=== PATIENT | male | born 1980 | race Hispanic/Latino ===

== ENCOUNTER 2023-07-13 19:24 | Emergency (ER) | payer OTHER, SELFPAY ==
[2023-07-13 19:24] VITALS: BP 149/98; PULSE 97; RESP 19; TEMP 36.2; O2SAT 98; BMI 31.3
[2023-07-13 22:02] VITALS: BP 145/105; PULSE 68; RESP 18; O2SAT 99
--- NOTE | 2023-07-13 22:58 | EKG12_ITS ---
Test Reason : DYSRHYTHMIA Blood Pressure : / mmHG Vent. Rate : 070 BPM Atrial Rate : 070 BPM P-R Int : 162 ms QRS Dur : 078 ms QT Int : 352 ms P-R-T Axes : 039 054 033 degrees QTc Int : 380 ms Normal sinus rhythm ST elevation, consider early repolarization Borderline ECG Confirmed by Oscar Marquez ([id number]), film editor MATT RAMIREZ ([id number]) on 07/18/2023 9:59:28 AM Referred By: Confirmed By:Oscar Marquez
--- NOTE | 2023-07-13 23:00 | EDS_ITS ---
HPI History of Present Illness Chief Complaint: Shortness of Breath Informant: patient Narrative Narrative: Patient presents secondary to left-sided chest pain, shortness of breath, and mild cough. 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 He had a lung biopsy in the distant past and completed his full treatment per his report. He states every once in a while he will get flares of this left-sided lung pain. He does report some subjective fever and chills but he states he gets very rarely. [facility] Medical History Tuberculosis Home Medications ?Medication ?Instructions ?Recorded ?Last Taken ?Type naproxen 500 mg tablet (Naprosyn) 500 mg PO BID PRN pain #20 tabs 07/14/23 Unknown Rx tramadol 50 mg tablet 50 mg PO Q8H PRN pain #14 tabs 07/14/23 Unknown Rx Allergy/AdvReac Type Severity Reaction Status Date / Time No Known Allergies Allergy Verified 07/13/23 19:27 Social History Smoking Status: Never smoker ROS ROS ED Constitutional Constitutional ED: Denies chills or fever(s) Eyes Eyes: Denies discharge from eye(s) ENT ENT ED: Denies discharge from eye(s), rhinorrhea or sore throat Cardiovascular Cardiovascular: Reports chest pain; Denies palpitations Respiratory/Chest Respiratory/Chest: Reports cough and dyspnea Gastrointestinal Gastrointestinal: Denies abdominal pain, nausea or vomiting Genitourinary Genitourinary ED: Denies dysuria Musculoskeletal Musculoskeletal: Denies back pain or extremity pain Integumentary Denies Abrasions or rash Neurologic Neurologic: Denies headache(s) or weakness Psychiatric Psychiatric: Denies anxiety or depression Allergic/Immunologic Allergic/Immunologic ED: Denies lip swelling or urticaria EXAM Physical Exam Const Vital Signs: 07/13/23 19:24 07/13/23 21:59 07/13/23 22:02 Temperature 97.1 F L Temperature Source Temporal Pulse Rate 97 68 Respiratory Rate 19 H 18 Respiratory Effort Normal Non-Labored Respiratory Depth Normal Respiratory Pattern Normal Blood Pressure 149/98 H 145/105 H Blood Pressure Mean 115 118 Pulse Ox 98 99 Oxygen Delivery Method Room Air Room Air Room Air 07/14/23 00:00 Temperature Temperature Source Pulse Rate 75 Respiratory Rate 17 Respiratory Effort Respiratory Depth Respiratory Pattern Blood Pressure 145/98 H Blood Pressure Mean 112 Pulse Ox 98 Oxygen Delivery Method Positive well nourished and well developed General Appearance ED: well developed HEENT Reports moist mucous membranes Eyes EOMs intact bilaterally Chest Wall inspection of chest normal and palpation of chest normal Resp normal respiratory effort and clear to auscultation bilaterally Cardio regular rate and regular rhythm GI non-tender Palpation: soft Extremity normal to inspection Neuro oriented x3 and no sensory deficits noted Motor Exam: strength 5/5 throughout Psych mental status grossly normal Skin no rashes or lesions noted MDM MDM MDM Narrative Medical decision making narrative: Patient placed on night monitor. IV line initiated. Labwork obtained to evaluate for leukocytosis, anemia, and electrolyte derangement. EKG obtained to evaluate for cardiac arrhythmia/ischemia. Chest x-ray obtained to evaluate for acute lung pathology, cardiac size, or mediastinal abnormality. History & Record Review Discussion w/independent historian: Patient and Significant other Lab Data Attestation: I reviewed the patient's lab results. Labs: Laboratory Results - last 24 hr 07/13/23 23:10 WBC 7.7 RBC 4.72 Hgb 14.6 Hct 41.3 MCV 87.5 MCH 30.9 MCHC 35.4 RDW Std Deviation 40.7 RDW Coeff of [place] 12.6 Plt Count 235 MPV 10.3 Immature Gran % (Auto) 0.300 Neut % (Auto) 43.3 L Lymph % (Auto) 47.8 H [place] % (Auto) 6.7 Eos % (Auto) 1.3 Baso % (Auto) 0.6 Absolute Neuts (auto) 3.4 Absolute Lymphs (auto) 3.70 Nucleated RBC % 0 D-Dimer Quant (PE/DVT) < 0.27 L Sodium 137 Potassium 3.7 Chloride 104 Carbon Dioxide 30.0 Anion Gap 3 L BUN 16 Creatinine 1.22 Estim Creat Clear Calc 82.96 Est GFR (MDRD) Af Amer 83 Est GFR (MDRD) Non-Af 69 BUN/Creatinine Ratio 13.1 Glucose 105 Calcium 9.2 Troponin I High Sens < 3 L Radiography Chest X-Ray - ED: 1 View, Read by ED Physician, Normal, Heart, Lungs and Mediastinum EKG Initial EKG: Attestation: I personally reviewed and interpreted this EKG as follows: Interpretation: Sinus Rhythm (Sinus at 70 with no acute ischemia.) Treatment and Re-Evaluation :: CBC was normal white count 7.7 the hemoglobin of 14.6. Differential is unremarkable. Chemistry studies are normal. Troponin is less than 3 and D-dim er is less than 0.27. Portable chest x-ray per my interpretation reveals some slight chronic changes in the left but no evidence of focal infiltrate. Radiology interpretation reviewed and agrees. EKG is sinus with no obvious ischemia. Test results discussed with the patient. I will write him a short course of naproxen with a few tramadol for breakthrough pain. Patient be given off work today. Discharge Plan Triage Chief Complaint: Shortness of Breath ED Provider: Aubrie Arevalo Dx/Rx/DC Orders Clinical Impression: Chest pain Instructions: ED Chest Pain, Noncardiac Prescriptions: New naproxen [Naprosyn] 500 mg tablet 500 mg PO BID PRN (Reason: pain) Qty: 20 0RF tramadol 50 mg tablet 50 mg PO Q8H PRN (Reason: pain) Qty: 14 0RF Stand Alone Forms: ED Work / School Excuse Primary Care Provider: Sheldon Garcia Referrals: Sheldon Garcia MD [Primary Care Provider] - 1 Week if not improving NOT,DEFINED [Non-Staff] - Print Language: Mauritanian Disposition Disposition: Home, Self Care
--- NOTE | 2023-07-13 23:18 | RAD_ITS ---
EXAM: XR CHEST, 1 VIEW CLINICAL INDICATION: SOB TECHNIQUE: Frontal view of the chest. COMPARISON: No relevant prior studies available. FINDINGS: LUNGS AND PLEURAL SPACES: Unremarkable. No consolidation or edema. No pneumothorax. No effusion. HEART: Unremarkable. Cardiac silhouette not enlarged. MEDIASTINUM: Central airways and mediastinal contour are unremarkable. BONES/JOINTS: Unremarkable. No acute fracture. SOFT TISSUES: Unremarkable. RAD/Chest 1 View (Portable) IMPRESSION: No radiographic evidence of acute cardiopulmonary disease. Electronically Signed: Russ Mclean MD at 23:33 EDT ,
[2023-07-13 23:20] LABS: Absolute Neutrophil Count 3.4 X10^3/uL (2.0-7.7); Basophil# 0.05 X10^3/uL; Basophil% 0.6 % (0-1); Eosinophils% 1.3 % (0-5); Hematocrit 41.3 % (40-54); Hemoglobin 14.6 g/dL (13.0-16.5); Lymphocyte % 47.8 % (19-41); Mean Corp Hgb Conc 35.4 g/dL (32-36); Mean Corpuscular Hgb 30.9 pg (27.0-32.0); Mean Corpuscular Volume 87.5 fL (80-94); Mean Platelet Vol. 10.3 fl (6.2-12.0); Monocyte# 0.52 X10^3/uL; Monocyte% 6.7 % (0-10); NRBC Flagged by Analyzer 0 % (0-5); Neutrophil # 3.35 X10^3/uL (2.7-7.7); Neutrophil % 43.3 % (47-70); Platelet Count 235 K/mm3 (150-450); RBC Distribution Width CV 12.6 % (11.6-14.6); RBC Distribution Width SD 40.7 fl (35.1-43.9); Red Blood Count 4.72 M/mm3 (4.6-6.2); White Blood Count 7.7 K/mm3 (4.4-11.0)
[2023-07-13 23:37] LABS: Anion Gap 3 (5-15); BUN 16 mg/dL (7-18); BUN/Creat Ratio 13.1 RATIO (10-20); Calcium,Total 9.2 mg/dL (8.5-10.1); Chloride 104 mmol/L (98-107); Creatinine, Serum 1.22 mg/dL (0.70-1.30); EST Glomerular Filtration Rate 69 mL/min (>60); Est Glom Filt Rate - Afr Amer 83 mL/min (>60); Estimated Creatinine Clearance 82.96 ml/min; Glucose 105 mg/dL (74-106); Potassium 3.7 mmol/L (3.5-5.1); Sodium Level 137 mmol/L (136-145); Troponin-I HS < 3 pg/mL (3.0-78.0)
[2023-07-14] VITALS: BP 145/98; PULSE 75; RESP 17; O2SAT 98
[2023-07-14 00:04] LABS: D-Dimer Quantitative (DVT/PE) < 0.27 FEU/ug/m (0.27-0.49)
[2023-07-14 00:55] VITALS: BP 142/98; PULSE 80; RESP 21; TEMP 37.2; O2SAT 98
== END 2023-07-14 01:04 | disposition home or self-care (01) ==
PROVIDERS: Emergency Provider Emergency Medicine; PCP Family Medicine; Visit Provider Emergency Medicine
DX: R06.02 Shortness of breath (principal); R07.9 Chest pain, unspecified
CPT/HCPCS: 71045; 80048; 84484; 85025; 85379; 87631; 93005; 99283; A4216